=== PATIENT | male | born 1975 | race Caucasian/White ===

== ENCOUNTER 2020-06-26 20:03 | Inpatient (IN) | payer BC ==
[2020-06-26] MEDS ORDERED: ACETAMINOPHEN 650MG/RECT SUPP PR ONE (21:15)
[2020-06-26] MEDS ORDERED: NA CHLORIDE 0.9% 2,000 ML ONE (21:15)
--- NOTE | 2020-06-26 21:43 | RAD REPORT ---
EXAM DESCRIPTION: RAD - Chest Single View - 06/26/2020 9:33 pm CLINICAL HISTORY: FEVER Chest pain. COMPARISON: No comparisons FINDINGS: Portable technique limits examination quality. The lungs are grossly clear. The heart is normal in size. No displaced fractures. IMPRESSION: No acute intrathoracic process suspected.
[2020-06-26 21:53] LABS: ALT/SGPT 33 U/L (12-78); AST/SGOT 19 U/L (15-37); Albumin 3.7 g/dL (3.4-5.0); Alkaline Phosphatase 104 U/L (45-117); BUN Blood Urea Nitrogen 18 mg/dL (7-18); Bicarbonate 27 mmol/L (21-32); Bilirubin Direct 0.2 mg/dL (0-0.2); Bilirubin Total 0.7 mg/dL (0.2-1.0); Creatine Phosphokinase 304 U/L (39-308); Glucose Level 94 mg/dL (74-106); Protein, Total 8.2 g/dL (6.4-8.2); Sodium Level 143 mmol/L (136-145); Troponin (Emerg Dept Use Only) < 0.02 ng/mL (0.0-0.045)
[2020-06-26 21:58] LABS: Absolute Lymphocytes (CBC) 0.9 K/uL (0.7-4.9); Basophils % 0.3 % (0-1.3); Hematocrit 45.5 % (39.6-49.0); Lymphocytes % 5.7 % (15.3-44.8); MPV 8.5 fL (7.6-11.3)
[2020-06-26] MEDS ORDERED: CEFTRIAXONE/SWI 1gm 1 GM/10 ML SYR ONE (23:19)
[2020-06-26] MEDS ORDERED: IBUPROFEN 100 MG/5 ML UCUP ONE (23:19)
--- NOTE | 2020-06-26 23:25 | ER ---
Nurse's Notes [facility] Name: Parveen Cox Age: 44 yrs Sex: Male : 1975 Arrival Date: 06/26/2020 Time: 20:05 Bed 14 Private MD: Diagnosis: Urinary tract infection, site not specified;Other sepsis Presentation: 06/26 20:07 Chief complaint: Spouse and/or significant other states: We were driving back from [address] and he was on the air mattress I the bad of a converted van. I think he just got over heated, or maybe he has a UTI or possible upper respiratory infection. He was tested again on Thursday for Covid-19. He was tested on June 05 and was positive. 20:07 Coronavirus screen: Client denies travel out of the [place] in the last 14 days. fever, jb4 The client is unsure as to whether or not they have had previous COVID-19 testing. Ebola Screen: No symptoms or risks identified at this time. Initial Sepsis Screen: Does the patient meet any 2 criteria? RR > 20 per min. HR > 90 bpm. Yes Does the patient have a suspected source of infection? Yes: Productive cough/pneumonia Dysuria/Frequency/Urgency/UTI If YES to both, name of provider notified: Raghav VICKERS Risk Assessment: Do you want to hurt yourself or someone else? Patient reports no desire to harm self or others. Onset of symptoms was June 26, 2020. Transition of care: patient was not received from another setting of care. 20:07 Method Of Arrival: Wheelchair jb4 20:07 Acuity: ARABELLA 3 jb4 Historical: - Allergies: 20:07 shrimp; Can recieve IV contrast; jb4 - Home Meds: 20:07 Keppra Oral [Active]; diazepam Oral [Active]; baclofen pump [Active]; BRILINTA oral jb4 oral [Active]; aspirin 81 mg Oral chew [Active]; Pepcid Oral [Active]; Colace oral oral [Active]; Docalax [Active]; atorvastatin oral oral [Active]; Lexapro Oral [Active]; gabapentin oral oral [Active]; - PMHx: 20:07 Myocardial infarction; anoxic brain injury; Pneumonia; pylonephritis; Seizures; jb4 - PSHx: 20:07 baclofen pump; jb4 - Immunization history:: Adult Immunizations up to date. - Social history:: Smoking status: Patient denies any tobacco usage or history of. Patient/guardian denies using alcohol, street drugs. Screenin:07 Abuse screen: Denies threats or abuse. Nutritional screening: No deficits noted. jb4 Tuberculosis screening: No symptoms or risk factors identified. Fall Risk None identified. Assessment: 20:07 General: Appears in no apparent distress. uncomfortable, Behavior is Normal per jb4 provider. Pain: Unable to use pain scale. FLACC scale score is 5 out of 10. Neuro: Level of Consciousness is awake, alert, Oriented to Baseline per at the bedside. Cardiovascular: Patient's skin is warm and dry. Respiratory: Airway is patent Respiratory effort is even, labored, Respiratory pattern is symmetrical, tachypnea Breath sounds are clear bilaterally. Parent/caregiver reports the patient having cough that is. GI: No signs and/or symptoms were reported involving the gastrointestinal system. : No signs and/or symptoms were reported regarding the genitourinary system. EENT: No signs and/or symptoms were reported regarding the EENT system. Derm: Skin is intact, Skin is pink, warm \T\ dry. Musculoskeletal: Circulation, motion, and sensation intact. Range of motion: limited in all extremities. 21:00 Reassessment: No changes from previously documented assessment. Patient and/or family jb4 updated on plan of care and expected duration. Pain level reassessed. Patient is alert, oriented x 3, equal unlabored respirations, skin warm/dry/pink. 22:00 Reassessment: Patient and/or family updated on plan of care and expected duration. Pain jb4 level reassessed. Patient is alert, oriented x 3, equal unlabored respirations, skin warm/dry/pink. PT remains in bed with at the bedside. Flu test recollected, pt repositioned. 23:04 Reassessment: No changes from previously documented assessment. Patient and/or family jb4 updated on plan of care and expected duration. Pain level reassessed. Patient is alert, oriented x 3, equal unlabored respirations, skin warm/dry/pink. 06/27 00:30 Reassessment: Patient and/or family updated on plan of care and expected duration. Pain jb4 level reassessed. Patient is alert, oriented x 3, equal unlabored respirations, skin warm/dry/pink. Hospitalist is at the bedside updating pt and family on plan of care. Vital Signs: 06/26 20:07 BP 104 / 64; Pulse 112; Resp 28; Temp 100.8(A); Pulse Ox 100% on R/A; Weight 58.97 kg jb4 (R); 21:00 BP 104 / 66; Pulse 110; Resp 24; Pulse Ox 100% on R/A; jb4 22:00 BP 99 / 59; Pulse 109; Resp 24; Temp 101.8(A); Pulse Ox 99% on R/A; jb4 23:00 BP 104 / 59; Pulse 104; Resp 19; Temp 101.5(A); Pulse Ox 97% on R/A; jb4 06/27 00:00 BP 99 / 50; Pulse 97; Resp 21; Pulse Ox 95% on R/A; jb4 00:45 BP 95 / 57; Pulse 91; Resp 19; Temp 99.1(A); Pulse Ox 97% on R/A; jb4 ED Course: 06/26 20:05 Patient arrived in ED. cl3 20:07 Arm band placed on right wrist. jb4 20:10 Raghav Taylor PA is PHCP. cp 20:10 Brenton Parikh MD is Attending Physician. cp 20:34 Dajuan Cardoso, TRESSA is Primary Nurse. jb4 20:42 Triage completed. jb4 21:05 Initial lab(s) drawn, by wv, sent to lab. First set of blood cultures drawn by me, Flu bb and/or RSV swab sent to lab. Inserted saline lock: 20 gauge in right upper arm, using aseptic technique. Blood collected. 21:32 Influenza Screen (a \T\ B) Sent. jb4 21:32 Basic Metabolic Panel Sent. jb4 21:32 Blood Culture Adult (2) Sent. jb4 21:32 CBC with Diff Sent. jb4 21:32 CPK Sent. jb4 21:32 Lactate Sent. jb4 21:32 LFT's Sent. jb4 21:32 Procalcitonin Sent. jb4 21:32 Ptt, Activated Sent. jb4 21:32 Troponin (emerg Dept Use Only) Sent. jb4 21:33 Chest Single View XRAY In Process Unspecified. EDMS 21:41 Placed in gown. Side rails up X2. Repositioned patient. Cleaned of incontinence. Linen jb5 changed. 22:30 Influenza Screen (a \T\ B) Sent. jb4 23:02 Straight cath inserted, using sterile technique, 16 Fr. Returned cloudy urine. Patient jb5 tolerated well. 23:03 Urine Culture Sent. jb5 23:24 Yovani Ramesh DO is Hospitalizing Provider. 06/27 11:09 No provider procedures requiring assistance completed. Patient admitted, IV remains in jr10 place. intact, No redness/swelling at site. Pressure dressing applied. Administered Medications: 06/26 21:15 Drug: NS 0.9% (30 ml/kg) 30 ml/kg Route: IV; Rate: bolus; Site: right upper arm; bb 23:02 Follow up: Response: No adverse reaction; IV Status: Completed infusion; IV Intake: jb4 1769ml 21:15 Drug: Acetaminophen Suppository 650 mg Route: DC; 23:01 Follow up: Response: No adverse reaction; Temperature is decreased [facility] 23:25 Drug: Rocephin 1 grams Route: IV; Rate: calculated rate; Site: right upper arm; jb4 23:28 Follow up: Response: No adverse reaction; IV Status: Completed infusion; IV Intake: [id number] 23:25 Drug: Motrin 600 mg Route: PO; 4 06/27 00:49 Follow up: Response: No adverse reaction; Temperature is decreased [facility] 06/26 23:29 Not Given (Other Intervention Used): Motrin 800 mg PO once jb4 Intake: 23:02 IV: 1769ml; Total: 1769ml. jb4 23:28 IV: 10ml; Total: 1779ml. jb4 Outcome: 23:24 Decision to Hospitalize by Provider. 06/27 11:08 Admitted to Med/surg accompanied by tech, family with patient, via wheelchair, room [id number], with chart, Report called to TRESSA Thompson; see [facility] chart[facility] for additional documentation Condition: improved Instructed on the need for admit. 11:10 Patient left the ED. 10 Signatures: Dispatcher [facility] EDWA Edna Guerra RN RN bb Raghav Taylor PA PA cp Dajuan Cardoso RN RN jb4 Anahy Rodriguez jb5 Don Lnaier cl3 Bianka Eng RN RN jr10 Corrections: (The following items were deleted from the chart) 06/26 22:12 21:00 Reassessment: Patient and/or family updated on plan of care and expected jb4 duration. Pain level reassessed. Patient is alert, oriented x 3, equal unlabored respirations, skin warm/dry/pink. PT remains in bed with at the bedside. Flu test recollected, pt repositioned. jb4
--- NOTE | 2020-06-26 23:25 | EDPHYS ---
Physician Documentation [facility] Name: Parveen Cox Age: 44 yrs Sex: Male : 1975 Arrival Date: 06/26/2020 Time: 20:05 Bed 14 Private MD: ED Physician Brenton Parikh HPI: 06/26 21:05 This 44 yrs old Male presents to ER via Wheelchair with complaints of Fever. cp 21:05 The patient reports fever, with an emergency department temperature of 100.8 degrees cp Fahrenheit. Onset: The symptoms/episode began/occurred today. 21:05 Associated signs and symptoms: Pertinent positives: cough, Pertinent negatives: cp diarrhea, vomiting. 21:05 Severity of symptoms: in the emergency department the symptoms are unchanged. cp Historical: - Allergies: 20:07 shrimp; Can recieve IV contrast; jb4 - Home Meds: 20:07 Keppra Oral [Active]; diazepam Oral [Active]; baclofen pump [Active]; BRILINTA oral jb4 oral [Active]; aspirin 81 mg Oral chew [Active]; Pepcid Oral [Active]; Colace oral oral [Active]; Docalax [Active]; atorvastatin oral oral [Active]; Lexapro Oral [Active]; gabapentin oral oral [Active]; - PMHx: 20:07 Myocardial infarction; anoxic brain injury; Pneumonia; pylonephritis; Seizures; jb4 - PSHx: 20:07 baclofen pump; jb4 - Immunization history:: Adult Immunizations up to date. - Social history:: Smoking status: Patient denies any tobacco usage or history of. Patient/guardian denies using alcohol, street drugs. ROS: 21:10 Constitutional: Positive for chills, fever. cp 21:10 Unable to obtain ROS due to patient with history of anoxic brain injury. cp Exam: 21:15 Constitutional: The patient appears in no acute distress, alert, awake, non-toxic, well cp developed, well nourished. 21:15 Head/Face: Normocephalic, atraumatic. cp 21:15 Eyes: Periorbital structures: appear normal, Conjunctiva: normal, no exudate, no injection, Sclera: no appreciated abnormality, Lids and lashes: appear normal, bilaterally. 21:15 ENT: External ear(s): are unremarkable, Nose: is normal, Mouth: Lips: moist, Oral mucosa: moist, Posterior pharynx: Airway: no evidence of obstruction, patent. 21:15 Neck: ROM/movement: is normal, is supple, no meningismus, no nuchal rigidity. 21:15 Chest/axilla: Inspection: normal, Palpation: is normal, no crepitus, no tenderness. 21:15 Cardiovascular: Rate: tachycardic, Rhythm: regular, Edema: is not appreciated, JVD: is not appreciated. 21:15 Respiratory: the patient does not display signs of respiratory distress, Respirations: normal, no use of accessory muscles, no retractions, Breath sounds: are clear throughout, no decreased breath sounds, no stridor, no wheezing. 21:15 Abdomen/GI: Inspection: abdomen appears normal, Palpation: abdomen is soft and non-tender, in all quadrants. 21:15 Skin: cellulitis, is not appreciated, no rash present. 21:15 Neuro: Motor: the patient is contracted. 21:43 ECG was reviewed by the Attending Physician. cp Vital Signs: 20:07 BP 104 / 64; Pulse 112; Resp 28; Temp 100.8(A); Pulse Ox 100% on R/A; Weight 58.97 kg jb4 (R); 21:00 BP 104 / 66; Pulse 110; Resp 24; Pulse Ox 100% on R/A; jb4 22:00 BP 99 / 59; Pulse 109; Resp 24; Temp 101.8(A); Pulse Ox 99% on R/A; jb4 23:00 BP 104 / 59; Pulse 104; Resp 19; Temp 101.5(A); Pulse Ox 97% on R/A; jb4 06/27 00:00 BP 99 / 50; Pulse 97; Resp 21; Pulse Ox 95% on R/A; jb4 00:45 BP 95 / 57; Pulse 91; Resp 19; Temp 99.1(A); Pulse Ox 97% on R/A; jb4 MDM: 06/26 20:14 Patient medically screened. cp 21:15 Differential diagnosis: pneumonia UTI, sepsis, cellulitris. cp 23:23 Data reviewed: vital signs, nurses notes, lab test result(s), EKG, radiologic studies, cp plain films, I have discussed the patient's presentation/case with the attending Emergency Department Physician; and as a result, I will admit patient. Physician consultation: Kane VICKERS was called at 23:23, was contacted at 23:23, regarding admission, to the medical/surgical unit. 06/26 21:02 Order name: Urine Culture cp 06/26 21: Order name: Basic Metabolic Panel; Complete Time: 22:31 cp 06/26 22:31 Interpretation: Normal except: CL 108. cp 06/26 21:02 Order name: Blood Culture Adult (2) cp / 21:02 Order name: CBC with Diff; Complete Time: 00:13 cp 06/26 22:31 Interpretation: Normal except: WBC 15.2; ZAFAR% 86.9; LYM% 5.7; NEUT A 13.2. cp / 21:02 Order name: CPK; Complete Time: 22:31 cp 06/26 21:02 Order name: Lactate; Complete Time: 22:31 cp 06/27 00:14 Interpretation: Within normal limits: LAC 2.0. cp / 21:02 Order name: LFT's; Complete Time: 22:31 cp 06/26 22:31 Interpretation: Normal except: GLOB 4.5; A/G 0.8. cp / 21:02 Order name: Procalcitonin; Complete Time: 22:31 cp / 00:15 Interpretation: Within normal limits: Procalcitonin 0.13. cp 06/26 21:02 Order name: Ptt, Activated; Complete Time: 22:31 cp 06/26 21:02 Order name: Troponin (emerg Dept Use Only); Complete Time: 22:31 cp 06/26 22:31 Interpretation: Within normal limits: TROPED < 0.02. cp / 21:02 Order name: Urine Microscopic Only; Complete Time: 00:13 cp / 00:13 Interpretation: Normal except: UWBC >50. cp / 21:02 Order name: Influenza Screen (a \T\ B); Complete Time: 00:13 cp 06/26 22:11 Order name: Manual Differential; Complete Time: 00:13 EDMS 08/12 00:14 Interpretation: Normal except: SEGS 84; LYM 7. cp 06/26 23:02 Order name: Urine Dipstick--Ancillary (enter results); Complete Time: 00:13 tt3 / 00:14 Interpretation: Normal except: USPGR >1.030; UBLD TRACE; UESTR 3+. 06/26 21:02 Order name: Cath; Complete Time: 23:03 cp 06/26 21:02 Order name: Chest Single View XRAY; Complete Time: 21:50 cp 06/26 21:50 Interpretation: Report review. 06/26 21:02 Order name: Accucheck; Complete Time: 21:33 cp 06/26 21:02 Order name: Cardiac monitoring; Complete Time: 21:33 cp 06/26 21:02 Order name: EKG - Nurse/Tech; Complete Time: 21:37 cp 06/26 21:02 Order name: IV Saline Lock - Large Bore; Complete Time: 21:22 cp 06/26 21:02 Order name: Labs collected and sent; Complete Time: 21:22 cp 06/26 21:02 Order name: O2 Per Protocol; Complete Time: 21:33 06/26 21:02 Order name: O2 Sat Monitoring; Complete Time: 21:33 06/26 21:02 Order name: Urine Dipstick-Ancillary (obtain specimen); Complete Time: 23:03 cp 06/27 05:34 Order name: Lactate EDMS EC:43 Rate is 114 beats/min. Rhythm is regular. LA interval is normal. QRS interval is cp normal. QT interval is normal. Interpreted by me. Reviewed by me. Administered Medications: 21:15 Drug: NS 0.9% (30 ml/kg) 30 ml/kg Route: IV; Rate: bolus; Site: right upper arm; bb 23:02 Follow up: Response: No adverse reaction; IV Status: Completed infusion; IV Intake: jb4 1769ml 21:15 Drug: Acetaminophen Suppository 650 mg Route: LA; bb 23:01 Follow up: Response: No adverse reaction; Temperature is decreased 4 23:25 Drug: Rocephin 1 grams Route: IV; Rate: calculated rate; Site: right upper arm; jb4 23:28 Follow up: Response: No adverse reaction; IV Status: Completed infusion; IV Intake: [id number] 23:25 Drug: Motrin 600 mg Route: PO; jb4 06/27 00:49 Follow up: Response: No adverse reaction; Temperature is decreased jb4 0811 23:29 Not Given (Other Intervention Used): Motrin 800 mg PO once jb4 Disposition: 23:30 Chart complete. 06/28 05:24 Co-signature as Attending Physician, Brenton Parikh MD I agree with the assessment and 4 plan of care. Disposition: 06/26/20 23:24 Hospitalization ordered by Yovani Ramesh for Inpatient Admission. Preliminary diagnosis are Urinary tract infection, site not specified, Other sepsis. - Bed requested for Telemetry/MedSurg (Inpatient). - Status is Inpatient Admission. jr10 - Condition is Stable. - Problem is new. - Symptoms have improved. Signatures: Dispatcher [employer] EDMS Verna Lnaier, RN Edna Parrish RN RN bb Page, Corey, PA PA cp Garcia, Cindy, RN RN Dajuan Cardoso RN RN [facility] Brenton Parikh MD MD [facility] Bianka Eng RN RN jr10 Corrections: (The following items were deleted from the chart) 06/26 23:25 23:24 Hospitalization Ordered by Yovani Ramesh DO for Inpatient Admission. Preliminary cp diagnosis is Urinary tract infection, site not specified. Bed requested for Telemetry/MedSurg (Inpatient). Status is Inpatient Admission. Condition is Stable. Problem is new. Symptoms have improved. 06/27 00:11 06/26 23:25 06/26/2020 23:24 Hospitalization Ordered by Yovani Ramesh DO for Inpatient cg Admission. Preliminary diagnosis is Urinary tract infection, site not specified; Other sepsis. Bed requested for Telemetry/MedSurg (Inpatient). Status is Inpatient Admission. Condition is Stable. Problem is new. Symptoms have improved. 06/27 09:40 00:11 06/26/2020 23:24 Hospitalization Ordered by Yovani Ramesh DO for Inpatient kl Admission. Preliminary diagnosis is Urinary tract infection, site not specified; Other sepsis. Bed requested for [facility] ER HOLD. Status is Inpatient Admission. Condition is Stable. Problem is new. Symptoms have improved. 11:10 09:40 06/26/2020 23:24 Hospitalization Ordered by Yovani Ramesh DO for Inpatient jr10 Admission. Preliminary diagnosis is Urinary tract infection, site not specified; Other sepsis. Bed requested for Telemetry/MedSurg (Inpatient). Status is Inpatient Admission. Condition is Stable. Problem is new. Symptoms have improved. kl
[2020-06-26 23:52] LABS: Blood Morphology Comment NOT SEEN (NOT SEEN); Platelet Estimate ADEQ
[2020-06-27 00:02] LABS: Urine Blood TRACE (NEG); Urine Glucose NEGATIVE (NEG); Urine Protein TRACE (NEG); Urine Specific Gravity >1.030 (1.005-1.030); Urine pH 5.5 (5.0-7.0)
[2020-06-27 00:03] LABS: Urine Bacteria <20 /HPF (NONE SEEN); Urine Culture Reflex Order NOT NEEDED; Urine RBC <5 /HPF (NONE SEEN)
--- NOTE | 2020-06-27 00:53 | P.HP ---
Certification for Inpatient With expected LOS: >2 Midnights Patient will require the following post-hospital care: None Practitioner: I am a practitioner with admitting privileges, knowledge of patient current condition, hospital course, and medical plan of care. Services: Services provided to patient in accordance with Admission requirements found in Title 42 Section 412.3 of the Code of Federal Regulations <Kane Sal - Last Filed: 06/27/20 00:46> Patient History Date of Service: 06/27/20 Reason for admission: Urinary tract infection/sepsis History of Present Illness: 44-year-old male with a past medical history of myocardial infarction resulting in an anoxic brain injury, positive Covid pneumonia 3 weeks ago June 05, 2020, pyelonephritis May 11, 2020 and seizure presents to the emergency room brought by mother with complaints of fever. Mother states that patient and family all tested positive for thompson 3 weeks ago. They had just finished doing there quarantine and decided to go to the beach. They live in [facility]. On the drive down the patient was in a mattress in the back of a van. Family noted patient was running a fever and stops at the emergency room. Patient has a history of urinary tract infections. He was diagnosed with pyelonephritis May 11 at [facility]. Patient was admitted for 5 days and discharged on oral antibiotic. He completed his antibiotic therapy and was doing well. At his baseline patient does not communicate secondary to the anoxic brain injury. He is able to tolerate a regular diet while he is sitting up with chin tucked in to chest to reduce the risk of aspiration pneumonia. In the emergency room patient is not quite to baseline per mother's statement. He is able to comprehend but does not speak. Lab work in the emergency room shows an elevated white cell count of 15.2, procalcitonin of 0.13, lactic acid of 2.0 and bands x1. Patient's latest vitals show a temperature of 101.8, a pulse rate of 109 and a respiratory rate of 24. Blood pressure of 104/59. On physical exam patient is calm. Patient is not in distress. He is alert. Patient will be admitted and further evaluated. Home medications list reviewed: Yes - Past Medical/Surgical History Diabetic: No -: Myocardial infarct resulting in anoxic brain injury -: Seizure -: Covid pneumonia -: Pyelonephritis -: Baclofen pump Psychosocial/ Personal History: Patient is bed bound, lives at home with mother and family who take care of patient - Family History Family History: Reviewed- Non-Contributory - Social History Smoking Status: Never smoker Alcohol use: No CD- Drugs: No Caffeine use: No Place of Residence: Home <Kane Sal - Last Filed: 06/27/20 00:46> Date of Service: 06/28/20 <JenkinsShanita - Last Filed: 06/28/20 09:04> Allergies shrimp Allergy (Verified 06/27/20 01:28) Anaphylaxis Home Medications: Aspirin Chewable [Aspirin Chewable*] 81 mg PO DAILY 06/27/20 Atorvastatin Calcium [Lipitor] 40 mg PO DAILY 06/27/20 Baclofen [Lioresal Intrathecal] 1 pump IT CONT 06/27/20 Bisacodyl [Dulcolax] 10 mg PO PRN PRN 06/27/20 Docusate [Colace Cap] 100 mg PO DAILY 06/27/20 Doxazosin [Cardura] 4 mg PO BEDTIME 06/27/20 Escitalopram [Lexapro*] 10 mg PO DAILY 06/27/20 Famotidine [Pepcid] 20 mg PO BID 06/27/20 Gabapentin 300 mg PO BID 06/27/20 Polyethylene Glycol 3350 [Miralax] 1 packet PO BEDTIME 06/27/20 Ticagrelor [Brilinta] 90 mg PO DAILY 06/27/20 diazePAM [Valium] 7 mg PO TID* 06/27/20 levETIRAcetam [Keppra Inj] 750 mg PO BID 06/27/20 Review of Systems is unable to be obtained <JohnsmithaKane - Last Filed: 06/27/20 00:46> Physical Examination - Vital Signs Temperature: 101.8 F Blood Pressure: 104/59 Pulse: 109 Respirations: 24 Pulse Ox (%): 100 (RA) - Physical Exam General: Alert, In no apparent distress, Cooperative HEENT: Atraumatic, Normocephalic, PERRLA Neck: Supple, Other (Trachea midline) Respiratory: Clear to auscultation bilaterally, Normal air movement Cardiovascular: No edema, Normal pulses Capillary refill: <2 Seconds Gastrointestinal: Normal bowel sounds, Soft and benign Musculoskeletal: No erythema, No tenderness, Contractures Integumentary: No breakdown, No significant lesion, No tenderness/swelling Neurological: Normal tone, Other (Anoxic brain injury), Abnormal speech, Abnormal cranial nerve function, Abnormal affect - Studies Laboratory Data (last 24 hrs) 06/26/20 21:05: APTT 36.8 06/26/20 21:05: WBC 15.2 H, Hgb 15.1, Hct 45.5, Plt Count 213 06/26/20 21:05: Sodium 143, Potassium 4.0, BUN 18, Creatinine 0.72, Glucose 94, Total Bilirubin 0.7, AST 19, ALT 33, Alkaline Phosphatase 104 Microbiology Data (last 24 hrs): 06/26/20 21:57 Nasopharnyx Influenza Type A Antigen Screen - Final 06/26/20 21:57 Nasopharnyx Influenza Type B Antigen Screen - Final <Kane Sal - Last Filed: 06/27/20 00:46> Assessment and Plan - Plan Impression: Sepsis secondary to a urinary tract infection: History of anoxic brain injury from myocardial infarct resulting in patient being bed ridden and contraced: Myocardial infarct with cardiac stents x2 currently on Brilinta: History of seizures: Pyelonephritis: Positive Covid pneumonia 3 weeks ago: Plan: Sepsis secondary to a urinary tract infection: Patient was started on sepsis protocol in the ED. Received IV fluids, Tylenol for fever and IV antibiotics. Patient responded well to therapy. Will continue IV fluids. Will reassess patient within 6 hr. UA showing 3+ positive leukocyte esterase, white cell count greater than 50. History of anoxic brain injury from myocardial infarct resulting in patient being bed ridden and contraced: Patient suffered a myocardial infarct resulting in an anoxic brain injury. Patient is currently bed ridden and contracted. He is alert but does not communicate well. He does tolerate a regular diet as long as he is sitting up with his chin tucked to chest to reduce risk of aspiration. Chest x-ray showed no acute pathology. Continue Brilinta home medication. Continue diazepam. Patient has a baclofen pump in place. Myocardial infarct with cardiac stents x2 currently on Brilinta: Continue home medication of Brilinta as above. Place on continuous telemetry. History of seizures: Continue home medication of Keppra 750 mg b.i.d. Per Mom- patient has not had a recent seizure. Pyelonephritis: Patient was seen at [facility] in [facility] and diagnosed with pyelonephritis on May 11, 2020. He completed oral antibiotic therapy. Per mom patient has not had any urinary issues until now. Positive Covid pneumonia 3 weeks ago: Patient and family all tested positive for Covid pneumonia. They have completed 3 weeks of quarantine. Discharge Plan: Home Plan to discharge in: Greater than 2 days - Advance Directives Does patient have a Living Will: No Does patient have a Durable POA for Healthcare: No - Code Status/Comfort Care Code Status Assessed: Yes Time Spent Managing Pts Care (In Minutes): 55 <Kane Sal - Last Filed: 06/27/20 00:46> Date of Service: 06/27/20 Patient is a 44-year-old gentleman who suffered anoxic brain injury after acute myocardial infarction over a year ago. Patient is been pretty much dependent on his spouse for most of his care since then. Patient had a complete occlusion of his left anterior descending artery and had a stent placed. Patient has had prior urinary tract infection. Patient has been on Cardura to help him with urinary incontinence. At this time, patient presents with fever and altered mental status. Patient was having fevers of 102. Patient appeared to be septic with tachycardia and hypotension. At this time, patient be admitted to the hospital for IV antibiotics and IV fluids. Physical exam: Temperature of a 102 Awake and responds to questions Cardiovascular: Tachycardic Neurology: Contracted with a lower extremity; aphasic Assessment: 1. Sepsis 2. UTI 3. History of the anoxic injury 4. History of coronary artery disease with stent in the LAD 5. Leukocytosis 6. Fever-102 Plan: 1. IV hydration and IV antibiotic 2. Continue with cardiac meds 3. Anti-platelet therapy and statin therapy 4. Monitor vitals and white blood cell count closely 5. Repeat lactate 6. GI and DVT prophylaxis <Shanita Jenkins - Last Filed: 06/28/20 09:04>
[2020-06-27 01:18] VITALS: BMI 19.2
[2020-06-27] MEDS ORDERED: ACETAMINOPHEN 500 MG TAB PO PRN (01:28)
[2020-06-27] MEDS: NA CHLORIDE 0.9% 1,000 ML IV SCH ×3 (02:30→21:28)
[2020-06-27] MEDS: DIAZEPAM 5 MG TABLET PO PRN ×3 (03:00→20:58)
[2020-06-27] MEDS ORDERED: DIAZEPAM 10 MG/2 ML INJ SYRINGE ONE (03:01)
--- NOTE | 2020-06-27 05:43 | P.INFCA ---
Sepsis Focused Assessment - Sepsis Screen Result Severe Sepsis: Positive Septic Shock: Negative - Evaluation Current stage of sepsis: Severe sepsis - Vital Signs Reviewed: Yes Temperature: 97.9 F Heart rate: 71 Blood Pressure: 100/75 Respiratory Rate: 16 O2 Sat by Pulse Oximetry: 97 - Examination Date exam was performed: 06/27/20 (0455) Time exam was performed: 04:55 Heart: Regular rate/rhythm Lungs: Clear bilaterally Peripheral pulses: 3+ Normal Peripheral pulse location: Posterior tibial Capillary refill: <2 Seconds Skin examination: Normal turgor Comments: Improved <Kane Sal - Last Filed: 06/27/20 05:41> - Focused Assessment Complete? Sepsis Focused Assessment Completed?: Yes - Sepsis Screen Result Severe Sepsis: Positive Septic Shock: Negative - Vital Signs Temperature: 102 F Heart rate: 110 - Examination Heart: Regular rate/rhythm, Tachycardia Lungs: Clear bilaterally Peripheral pulses: 3+ Normal Peripheral pulse location: Posterior tibial Capillary refill: <2 Seconds Skin examination: Normal turgor <Shanita Jenkins - Last Filed: 06/28/20 09:06> Date of Service: 06/27/20 I agree with findings as above. <Shanita Jenkins - Last Filed: 06/28/20 09:06>
[2020-06-27] MEDS ORDERED: TICAGRELOR 90 MG TABLET PO SCH (09:00)
[2020-06-27] MEDS: levETIRAcetam 500 MG TAB PO SCH ×2 (09:00→20:42)
[2020-06-27] MEDS ORDERED: TICAGRELOR 90 MG TABLET PO ONE (09:05)
[2020-06-27] MEDS ORDERED: levETIRAcetam 500 MG TAB ONE (09:46)
[2020-06-27] MEDS ORDERED: BISACODYL E.C. 5 MG TAB PO PRN (09:49)
--- NOTE | 2020-06-27 09:52 | P.PN ---
Subjective Date of Service: 06/27/20 Review of Systems is unable to be obtained Physical Examination - Vital Signs Temperature: 98.6 F Blood Pressure: 103/68 Pulse: 72 Respirations: 20 Pulse Ox (%): 96 - Studies Laboratory Data (last 24 hrs) 06/26/20 21:05: APTT 36.8 06/26/20 21:05: WBC 15.2 H, Hgb 15.1, Hct 45.5, Plt Count 213 06/26/20 21:05: Sodium 143, Potassium 4.0, BUN 18, Creatinine 0.72, Glucose 94, Total Bilirubin 0.7, AST 19, ALT 33, Alkaline Phosphatase 104 Microbiology Data (last 24 hrs): 06/26/20 21:57 Nasopharnyx Influenza Type A Antigen Screen - Final 06/26/20 21:57 Nasopharnyx Influenza Type B Antigen Screen - Final Assessment & Plan - Advance Directives Does patient have a Living Will: No Does patient have a Durable POA for Healthcare: No
[2020-06-27] MEDS: ACETAMINOPHEN 325 MG TABLET PO SCH ×2 (10:00→16:00)
[2020-06-27] MEDS ORDERED: DIAZEPAM 5 MG TABLET ONE (10:14)
[2020-06-27] MEDS ORDERED: ACETAMINOPHEN 325 MG TABLET PO PRN (18:12)
[2020-06-27] MEDS: GABAPENTIN 300 MG CAP PO SCH (20:43)
[2020-06-27] MEDS ORDERED: DOXAZOSIN 4 MG TAB PO SCH (21:00)
[2020-06-27] MEDS ORDERED: HOME MED [FAMOTIDINE 20 MG TAB] PO SCH (21:00)
[2020-06-27] MEDS ORDERED: POLYETHYL GLY 3350 17 GM/DOSE PO SCH (21:00)
[2020-06-27] MEDS ORDERED: FAMOTIDINE 20 MG TAB PO SCH (21:00)
[2020-06-27] MEDS ORDERED: ATORVASTATIN 40 MG TAB PO SCH (21:00)
[2020-06-27] MEDS ORDERED: CEFTRIAXONE/SWI 1gm 1 GM/10 ML SYR IV SCH (21:00)
[2020-06-27] MEDS: DIAZEPAM 2 MG TABLET PO SCH (22:38)
[2020-06-28 00:27] VITALS: O2SAT 100
[2020-06-28] MEDS: NA CHLORIDE 0.9% 1,000 ML IV SCH (04:57)
[2020-06-28 05:52] LABS: BUN Blood Urea Nitrogen 9 mg/dL (7-18); Bicarbonate 25 mmol/L (21-32); Glucose Level 87 mg/dL (74-106); Magnesium 1.8 mg/dL (1.8-2.4); Potassium 3.7 mmol/L (3.5-5.1); Sodium Level 142 mmol/L (136-145)
[2020-06-28 05:54] LABS: Absolute Lymphocytes (CBC) 1.1 K/uL (0.7-4.9); Basophils % 0.4 % (0-1.3); Hematocrit 36.6 % (39.6-49.0); Lymphocytes % 13.2 % (15.3-44.8); MPV 8.7 fL (7.6-11.3); RBC Red Blood Cell Count 4.02 M/uL (4.33-5.43)
[2020-06-28] MEDS ORDERED: MAGNESIUM SULFATE 1 gm IVPB 1 GM/100 ML BAG IV ONE ×2 (06:08→06:10)
--- NOTE | 2020-06-28 07:30 | EKG ---
Test Date: 2020-06-26 Test Time: 21:38:02 Marketing Consultant: ELYSE MEASUREMENT RESULTS: Intervals: Rate: 114 GA: 146 QRSD: 86 QT: 344 QTc: 474 [place]: P: 59 GA: 146 QRS: 7 T: 56 INTERPRETIVE STATEMENTS: Sinus tachycardia Biatrial enlargement Anteroseptal infarct, age undetermined Abnormal ECG No previous ECG available for comparison Electronically Signed On 06-28-20 07:28:44 CDT by Lui Velasco
[2020-06-28] MEDS ORDERED: POTASSIUM 25 MEQ EFFERV TAB PO ONE (09:00)
[2020-06-28] MEDS ORDERED: ASPIRIN 81 MG CHEWABLE TABLET PO SCH (09:00)
[2020-06-28] MEDS ORDERED: TICAGRELOR 90 MG TABLET PO SCH (09:00)
[2020-06-28] MEDS ORDERED: ESCITALOPRAM 20 MG TAB PO SCH (09:00)
[2020-06-28] MEDS ORDERED: DOCUSATE NA 100 MG CAP PO SCH (09:00)
[2020-06-28] MEDS ORDERED: POTASSIUM CL SA 10 MEQ TAB PO ONE (09:00)
[2020-06-28] MEDS: DIAZEPAM 2 MG TABLET PO SCH (09:47)
[2020-06-28] MEDS: GABAPENTIN 300 MG CAP PO SCH (09:47)
[2020-06-28] MEDS: levETIRAcetam 500 MG TAB PO SCH (09:48)
[2020-06-28] MEDS ORDERED: DIAZEPAM 5 MG TABLET PO SCH (12:00)
[2020-06-28 14:29] VITALS: BP 91/50; TEMP 98
--- NOTE | 2020-07-03 12:23 | P.DS ---
Discharge Date: 06/28/20 Disposition: ROUTINE DISCHARGE Discharge Condition: GOOD Reason for Admission: Urinary tract infection/sepsis Brief History of Present Illness: 44-year-old male with a past medical history of myocardial infarction resulting in an anoxic brain injury, positive Covid pneumonia 3 weeks ago June 05, 2020, pyelonephritis May 11, 2020 and seizure presents to the emergency room brought by mother with complaints of fever. Mother states that patient and family all tested positive for thompson 3 weeks ago. They had just finished doing there quarantine and decided to go to the beach. They live in [facility]. On the drive down the patient was in a mattress in the back of a van. Family noted patient was running a fever and stops at the emergency room. Patient has a history of urinary tract infections. He was diagnosed with pyelonephritis May 11 at [facility]. Patient was admitted for 5 days and discharged on oral antibiotic. He completed his antibiotic therapy and was doing well. At his baseline patient does not communicate secondary to the anoxic brain injury. He is able to tolerate a regular diet while he is sitting up with chin tucked in to chest to reduce the risk of aspiration pneumonia. In the emergency room patient is not quite to baseline per mother's statement. He is able to comprehend but does not speak. Lab work in the emergency room shows an elevated white cell count of 15.2, procalcitonin of 0.13, lactic acid of 2.0 and bands x1. Patient's latest vitals show a temperature of 101.8, a pulse rate of 109 and a respiratory rate of 24. Blood pressure of 104/59. Hospital Course: Patient was found have a UTI. We started patient on antibiotics.Patient has done while on antibiotics. He is adamant about leaving according to his . Patient is debilitated but he has been crying all night so she wants to take him home. At this time, patient is stable for discharge home. Vital Signs/Physical Exam: Temp Pulse Resp BP Pulse Ox 98 F 91 H 18 91/50 L 96 06/28/20 12:00 06/28/20 12:00 06/28/20 12:00 06/28/20 12:00 06/28/20 12:00 General: Alert, In no apparent distress, Oriented x3 Laboratory Data at Discharge: WBC 8.6 K/uL (4.3-10.9) D 06/28/20 05:18 Hgb 12.5 g/dL (13.6-17.9) L D 06/28/20 05:18 Hct 36.6 % (39.6-49.0) L D 06/28/20 05:18 Plt Count 176 K/uL (152-406) 06/28/20 05:18 APTT 36.8 SECONDS (24.3-36.9) 06/26/20 21:05 Sodium 142 mmol/L (136-145) 06/28/20 05:18 Potassium 3.7 mmol/L (3.5-5.1) 06/28/20 05:18 BUN 9 mg/dL (7-18) 06/28/20 05:18 Creatinine 0.41 mg/dL (0.55-1.3) L 06/28/20 05:18 Glucose 87 mg/dL (74-106) 06/28/20 05:18 Magnesium 1.8 mg/dL (1.8-2.4) 06/28/20 05:18 Total Bilirubin 0.7 mg/dL (0.2-1.0) 06/26/20 21:05 AST 19 U/L (15-37) 06/26/20 21:05 ALT 33 U/L (12-78) 06/26/20 21:05 Alkaline Phosphatase 104 U/L (45-117) 06/26/20 21:05 Home Medications: Aspirin Chewable [Aspirin Chewable*] 81 mg PO DAILY 06/27/20 Atorvastatin Calcium [Lipitor] 40 mg PO DAILY 06/27/20 Baclofen [Lioresal Intrathecal] 1 pump IT CONT 06/27/20 Bisacodyl [Dulcolax] 10 mg PO PRN PRN 06/27/20 Docusate [Colace Cap*] 100 mg PO DAILY 06/27/20 Doxazosin [Cardura*] 4 mg PO BEDTIME 06/27/20 Escitalopram [Lexapro*] 10 mg PO DAILY 06/27/20 Famotidine [Pepcid*] 20 mg PO BID 06/27/20 Gabapentin 300 mg PO BID 06/27/20 Polyethylene Glycol 3350 [Miralax] 1 packet PO BEDTIME 06/27/20 Ticagrelor [Brilinta*] 90 mg PO DAILY 06/27/20 diazePAM [Valium*] 7 mg PO TID* 06/27/20 levETIRAcetam [Keppra Inj*] 750 mg PO BID 06/27/20 Cefdinir [Omnicef] 300 mg PO BID #14 capsule 06/28/20 New Medications: Cefdinir [Omnicef] 300 mg PO BID #14 capsule Patient Discharge Instructions: OK TO DC IV AND DC HOME. FOLLOW-UP WITH PRIMARY CARE PROVIDER IN 1-2 WEEKS. FOLLOW-UP WITH physical therapy as soon as possible. RETURN TO THE ER IF symptoms worsen. CALL or TEXT DR. CASTILLO AT [phone] IF ANY QUESTIONS REGARDING HOSPITAL STAY. PLEASE CALL THE FLOOR AT [phone] IF ANY MEDICATION OR NURSING QUESTIONS. Diet: Regular Activity: Fall precautions Time spent managing pt's care (in minutes): 30
== END 2020-06-28 13:00 | disposition home or self-care (01) | DRG 872 ==
LOC: ER 20:03 → ERHOLD 06-27 00:42 → 2ND 06-27 10:32
PROVIDERS: ADMIT Hospitalist; ATTEND Hospitalist
DX: A41.9 Sepsis, unspecified organism (principal); N39.0 Urinary tract infection, site not specified; N12 Tubulo-interstitial nephritis, not specified as acute or chronic; I25.2 Old myocardial infarction; R65.20 Severe sepsis without septic shock; Z74.01 Bed confinement status; Z91.013 Allergy to seafood; Z79.52 Long term (current) use of systemic steroids; Z79.899 Other long term (current) drug therapy; Z95.5 Presence of coronary angioplasty implant and graft; Z86.19 Personal history of other infectious and parasitic diseases
CPT/HCPCS: 36415; 51702; 71045; 80048; 80076; 81003; 81015; 82550; 83605; 83735; 84145; 84484; 85025; 85730; 87040; 87077; 87086; 87088; 87186; 87804; 93005; 96365; 96366; 96375; 99285; J0696; J3360; J3475; J7030